=== PATIENT | male | born 1965 | race Hispanic/Latino ===

== ENCOUNTER 2020-12-03 07:26 | Day surgery (SDC) | payer OTHER ==
[2020-11-30 12:21] LABS: BASOPHILS % (AUTO) 0.3 % (0.0-5.0); EOSINOPHILS % (AUTO) 0.9 % (0.0-8.0); HEMATOCRIT 45.2 % (42-54); LYMPHOCYTES % (AUTO) 27.3 % (21.0-51.0); MEAN CORPUSCULAR HEMOGLOBIN 30.2 pg (27.0-33.0); MEAN CORPUSCULAR HGB CONC 32.1 g/dL (32.0-36.0); MEAN CORPUSCULAR VOLUME 94.2 fL (79-99); MONOCYTES % (AUTO) 8.1 % (3.0-13.0); PLATELET COUNT (AUTO) 275 K/uL (130-400); RED CELL DISTRIBUTION WIDTH 12.9 % (11.0-15.5); WHITE BLOOD COUNT (AUTO) 6.8 K/uL (4.8-10.8)
[2020-11-30 12:27] LABS: CREATININE 0.9 mg/dL (0.5-1.5); POTASSIUM 4.2 mmol/L (3.5-5.1)
[2020-12-02 10:31] VITALS: BP 133/68
[2020-12-03] VITALS (16 sets, daily range): BP systolic 126–146; BP diastolic 57–91
[~2020-12-03] VITALS: Ht 170.2 cm; Wt 93.1 kg
[~2020-12-03 07:26] MED LIST: ASPI-1197 PO; ATOR40TA71 PO; FISH1CAP63 PO; GLIP10TA9 PO; IBUP-2784 PO; METF750T46 PO; MULT-1258 PO; PIOG15TA66 PO; TIZA4TAB5 PO; vitamin d PO
[2020-12-03] MEDS ORDERED: CEFAZOLIN SODIUM 1 GM VIAL IVP ONE (08:00)
[2020-12-03] MEDS ORDERED: LACTATED RINGERS 1000ML 1,000 ML IV SCH (08:00)
[2020-12-03] MEDS ORDERED: CEFAZOLIN SODIUM 1 GM VIAL ONE (09:51)
[2020-12-03] MEDS ORDERED: 0.9%NACL 1000ML 1,000 ML IV ONE (09:51)
[2020-12-03] MEDS ORDERED: ROCURONIUM 10MG/1ML SYR 10 MG/ML ML ONE (11:39)
[2020-12-03] MEDS ORDERED: PROPOFOL 10 MG/ML 20ML VIAL IV ONE (11:39)
[2020-12-03] MEDS ORDERED: MIDAZOLAM HCL 1 MG/ML 2ML VIAL ONE (11:39)
[2020-12-03] MEDS ORDERED: LIDOCAINE HCL-MPF 1% 5ML AMP IJ ONE (11:39)
[2020-12-03] MEDS ORDERED: FENTANYL CITRATE PF 50 MCG/1 ML 2ML VIAL ONE (11:40)
[2020-12-03] MEDS ORDERED: ROPIVACAINE 0.5% 5MG/ML 30ML IJ ONE (11:51)
[2020-12-03] MEDS ORDERED: NEOSTIGMINE 5MG/5ML SYR IV ONE (13:14)
[2020-12-03] MEDS ORDERED: GLYCOPYRROLATE 1 MG/5 ML SYRINGE ONE (13:14)
== END 2020-12-03 15:15 | disposition home or self-care (01) ==
LOC: DAH 07:26
PROVIDERS: ATTEND Orthopaedic Surgery
DX: M75.02 Adhesive capsulitis of left shoulder (principal); Z20.822 Contact with and (suspected) exposure to COVID-19; M25.812 Other specified joint disorders, left shoulder; M25.712 Osteophyte, left shoulder; E11.9 Type 2 diabetes mellitus without complications; G47.33 Obstructive sleep apnea (adult) (pediatric); I10 Essential (primary) hypertension; E78.00 Pure hypercholesterolemia, unspecified; Z79.899 Other long term (current) drug therapy
CPT/HCPCS: 29822; 29825; 36415; 64415; 76942; 80048; 82948 ×2; 85025; 87635; 93005; A4215; A4221; A4222; A4223; A4565; A4649 ×4; A4663; A4930 ×2; A6207; C9803; J0690; J2250; J2704; J2710; J2795; J3010; J3490 ×2; J7030 ×2; J7120